=== PATIENT | male | born 1965 | race Caucasian/White ===

== ENCOUNTER 2022-10-08 14:49 | Outpatient (CLI) | payer OTHER | END 2022-10-08 14:50 | disposition home or self-care (01) | LOC: TBSIIMAG 14:49 | PROVIDERS: ATTEND Orthopaedic Surgery | DX: M17.11 Unilateral primary osteoarthritis, right knee (principal); M23.231 Derangement of other medial meniscus due to old tear or injury, right knee; M25.461 Effusion, right knee ==